=== PATIENT | male | born 1980 | race Caucasian/White ===

== ENCOUNTER → 2019-09-28 15:38 | Outpatient (CLI) | payer OTHER, SELFPAY ==
--- NOTE | 2019-09-28 | DI.ECHO.S_ITS ---
[facility] +---------+ : : [address] : [place] : : : : [id number] : : : : Phone: [phone] +---------+ Echocardiogram Report + + :Name: GUS HERNANDEZ Study Date: 09/28/2019 Height: 70 in : :[facility] Weight: 175 lb : : Gender: Male BSA: 2.0 m2 : :: 1980 Age: 39 yrs BP: 138/80 mmHg: :Reason For Study: SLEEP APNEA : : Performed By: Usha Cowan : :Referring: LAZ ROBERTS : + + Interpretation Summary The left ventricle is normal in size. The ejection fraction is estimated to be 60-65%. The right ventricle is normal in size and function. No significant valvular pathology seen. The IVC is of normal diameter and collapses greater than 50% with a sniff. This suggests a low right atrial pressure of 3 mm Hg. Procedure: A two-dimensional transthoracic echocardiogram with color flow and Doppler was performed. The study quality was technically good. There is no prior echocardiogram noted for this patient. The patient was in normal sinus rhythm during the exam. Left Ventricle: The left ventricle is normal in size. There is normal left ventricular wall thickness. There is no thrombus. The ejection fraction is estimated to be 60-65%. There are no focal wall motion abnormalities. Diastolic parameters suggest probable normal left ventricular diastolic function and normal filling pressures. Right Ventricle: The right ventricle is normal in size and function. Atria: The left atrial size is normal. Right atrial size is normal. The interatrial septum is intact with no evidence for an atrial septal defect. Mitral Valve: The mitral valve is normal in structure and function. There is systolic anterior motion of the chordal apparatus. There is trace mitral regurgitation. Aortic Valve: The aortic valve is normal in structure and function. No aortic regurgitation is present. Tricuspid Valve: The tricuspid valve is normal in structure and function. There is trace tricuspid regurgitation. The right ventricular systolic pressure is estimated to be at least 24 mmHg based on an estimated right atrial pressure of 3 mm Hg. Right ventricular systolic pressure is normal. Pulmonic Valve: The pulmonic valve is normal in structure and function. There is no pulmonic valvular regurgitation. Great Vessels: The aortic root is normal size. The dimensions of the ascending aorta are normal. The pulmonary artery is normal size. The IVC is of normal diameter and collapses greater than 50% with a sniff. This suggests a low right atrial pressure of 3 mm Hg. Pericardium/ Pleura There is no pericardial effusion. There is no pleural effusion. MMode/2D Measurements & Calculations LVIDd: 5.2 cm LVOT diam: 2.3 cm LVIDs: 3.3 cm Ao root diam: 3.4 cm FS: 36.4 % asc Aorta Diam: 3.0 cm EPSS: 0.37 cm Ao Arch Diam (Prox Trans): 2.7 cm IVSd: 0.74 cm LVPWd: 0.75 cm LV lanier. diameter/BSA (cm/m^2): 2.6 LV sys. diameter/BSA (cm/m^2): 1.7 LA A2 area: 16.9 cm2 RA long axis: 4.2 cm LA A4 area: 14.2 cm2 RA area: 12.2 cm2 LA length (vol): 4.2 cm RA vol: 30.2 ml LA vol: 48.3 ml RA : 15.3 ml/m2 LA vol index: 24.5 ml/m2 IVC diam: 0.88 cm RVD1 (basal): 3.2 cm TAPSE: 2.2 cm Doppler Measurements & Calculations Ao V2 max: 123.5 cm/sec LVOT Max Yuriy: 110.7 cm/sec Ao V2 mean: 82.9 cm/sec LV V1 max P.9 mmHg Ao max P.1 mmHg LV V1 VTI: 21.8 cm Ao mean P.2 mmHg FLOYD(I,D): 3.3 cm2 Ao V2 VTI: 26.4 cm FLOYD(V,D): 3.6 cm2 sev ratio: 0.83 FLOYD indexed to BSA (cm^2/m^2): 1.7 MV E max yuriy: 85.3 cm/sec TR max yuriy: 229.5 cm/sec MV A max yuriy: 52.9 cm/sec TR max P.1 mmHg MV E/A: 1.6 PA V2 max: 74.3 cm/sec Med Peak E' Yuriy: 10.5 cm/sec PA V2 mean: 49.9 cm/sec E/E' med: 8.1 PA mean P.1 mmHg Lat Peak E' Yuriy: 12.8 cm/sec PA pr(Accel): 23.0 mmHg E/E' lat: 6.6 E/e' average: 7.4 MV dec time: 0.16 sec MV P1/2t: 47.2 msec MV P1/2t max yuriy: 84.4 cm/sec SV(LVOT): 87.3 ml MVA(P1/2t): 4.7 cm2 Reading Physician:01:17 PM
== END ==
PROVIDERS: Referring Provider Physician Assistant; Visit Provider Physician Assistant
DX: G47.30 Sleep apnea, unspecified (principal)
CPT/HCPCS: 93306